=== PATIENT | male | born 1965 | race Caucasian/White ===

== ENCOUNTER 2019-08-24 11:13 | Emergency (ER) | payer OTHER ==
[~2019-08-24] VITALS: Ht 172.7 cm; Wt 74.4 kg
[~2019-08-24 11:13] MED LIST: CIPRO500 MG PO; TOPROL XL25 M1; ULTRACET PO
[2019-08-24] MEDS ORDERED: ALTACE10 MG PO (12:05)
[2019-08-24] MEDS ORDERED: CRESTOR5 MG PO (12:05)
[2019-08-24] MEDS ORDERED: CIPRO500 MG PO (15:59)
== END 2019-08-24 17:35 | disposition home or self-care (01) ==
LOC: ER 11:13
DX: R50.9 Fever, unspecified (principal); N39.0 Urinary tract infection, site not specified; B96.1 Klebsiella pneumoniae [K. pneumoniae] as the cause of diseases classified elsewhere

== ENCOUNTER 2020-10-25 09:40 | Outpatient (CLI) | payer OTHER ==
[~2020-10-25 09:40] MED LIST changes: +ALTACE10 MG PO; +CRESTOR5 MG PO
== END 2020-10-25 09:48 | disposition home or self-care (01) ==
LOC: RAD 09:40
PROVIDERS: ATTEND Chiropractor
DX: M41.85 Other forms of scoliosis, thoracolumbar region (principal); M62.838 Other muscle spasm; M99.01 Segmental and somatic dysfunction of cervical region; M99.03 Segmental and somatic dysfunction of lumbar region

== ENCOUNTER 2021-12-19 09:27 | Outpatient (CLI) | payer OTHER | END 2021-12-19 09:32 | disposition home or self-care (01) | LOC: RAD 09:27 | DX: J20.9 Acute bronchitis, unspecified (principal) ==

== ENCOUNTER 2021-12-29 08:11 | Outpatient (CLI) | payer OTHER | END 2021-12-29 08:12 | disposition home or self-care (01) | LOC: SONOGRAMA 08:11 | PROVIDERS: ATTEND Internal Medicine | DX: E03.9 Hypothyroidism, unspecified (principal); K80.20 Calculus of gallbladder without cholecystitis without obstruction ==

== ENCOUNTER 2023-06-25 09:34 | Outpatient (CLI) | payer OTHER | END 2023-06-25 09:43 | disposition home or self-care (01) | LOC: RAD 09:34 | PROVIDERS: ATTEND Physical Medicine & Rehabilitation | DX: M54.2 Cervicalgia (principal) ==